=== PATIENT | male | born 1985 | race Caucasian/White ===

== ENCOUNTER 2025-04-18 22:58 | Emergency (ER) | payer OTHER ==
[~2025-04-18] VITALS: Ht 182.9 cm; Wt 102.0 kg
[2025-04-18 22:59] VITALS: TEMP 36.6; O2SAT 97
[2025-04-18 23:48] LABS: BASOPHILS % 0.4 % (0.0-2.0); EOSINOPHILS % 0.8 % (0.0-5.0); HEMATOCRIT. 40.3 % (42.0-52.0); HEMOGLOBIN. 13.6 g/dL (14.0-18.0); LYMPHOCYTES % 14.1 % (20.0-50.0); MEAN PLATELET VOLUME 8.9 fl (7.4-10.4); MONOCYTES % 6.7 % (2.0-8.0); NEUTROPHILS % 78.0 % (40.0-76.0); PLATELET 328 x1000/uL (130-400); RED BLOOD CELL COUNT 4.67 mill/uL (4.7-6.1); RED CELL DISTRIBUTION WIDTH 12.6 % (11.6-14.6)
[2025-04-19 00:02] LABS: INR 1.0
[2025-04-19 00:16] LABS: CREATININE 1.3 mg/dL (0.6-1.3); TROPONIN I HIGH SENSITIVITY < 4 ng/L (3.0-53); UREA NITROGEN BLOOD 12 mg/dL (9-23)
[2025-04-19 00:17] LABS: ETHANOL BLOOD < 10 mg/dL (<10)
[2025-04-19 00:18] LABS: ASPARTATE AMINOTRANSFERASE 27 IU/L (<34); BILIRUBIN DIRECT < 0.1 mg/dL (<=3.0); BILIRUBIN TOTAL 0.3 mg/dL (0.1-1.0); PROTEIN TOTAL 6.8 g/dL (6.0-8.3)
[2025-04-19] MEDS: ACETAMINOPHEN 325MG TABLET PO ONE (00:39)
[2025-04-19] MEDS: TETANUS, DIPHTHERIA, PERTUSSIS VAC/PF 0.5ML (>10YR OLD) IM ONE (00:40)
[2025-04-19] MEDS: POTASSIUM CHLORIDE 20MEQ TABLET SR PO SCH (01:08)
[2025-04-19] MEDS: MORPHINE SULFATE 4 MG/ML INJ (FOR IV/IM USE) IV ONE (01:12)
[2025-04-19 02:10] LABS: TROPONIN I HIGH SENSITIVITY 4 ng/L (3.0-53)
[2025-04-19] MEDS: LIDOCAINE HCL/PF 1% 10 MG/ML 5ML VIAL INFIL ONE (02:43)
[2025-04-19] MEDS: BACITRACIN ZINC OINT UDPKT TOP ONE (02:43)
[2025-04-19] MEDS ORDERED: IBUP-2029 MT (03:21)
[2025-04-19] MEDS ORDERED: METH-653 MT (03:21)
[2025-04-19 03:27] LABS: CLARITY URINE CLEAR (CLEAR); COLOR URINE YELLOW (YELLOW); GLUCOSE URINE TRACE (NEGATIVE); KETONES URINE NEGATIVE (NEGATIVE); LEUKOCYTE ESTERASE URINE NEGATIVE (NEGATIVE); NITRITE URINE NEGATIVE (NEGATIVE); OCCULT BLOOD URINE NEGATIVE (NEGATIVE); PH URINE 5.5 (4.5-8.0); PROTEIN URINE TRACE (NEGATIVE); SPECIFIC GRAVITY URINE 1.036 (1.005-1.030); UROBILINOGEN URINE 0.2 E.U./dL (0.2-1.0)
[2025-04-19] MEDS ORDERED: [UNRECOGNIZED DRUG - CODE] TOP (03:27)
[2025-04-19] MEDS ORDERED: [UNRECOGNIZED DRUG - CODE] TOP (03:27)
[2025-04-19 03:38] LABS: *AMPHETAMINES SCREEN URINE NEGATIVE (NEGATIVE); *BARBITURATES SCREEN URINE NEGATIVE (NEGATIVE); *BENZODIAZEPINES SCREEN URINE NEGATIVE (NEGATIVE); *COCAINE SCREEN URINE NEGATIVE (NEGATIVE); CANNABINOID URINE SCREEN NEGATIVE (NEGATIVE); ECSTASY MDMA SCREEN URINE NEGATIVE (NEGATIVE); METHADONE URINE SCREEN NEGATIVE (NEGATIVE); OPIATES URINE SCREEN PRESUMPTIVE POSITIVE (NEGATIVE); PHENCYCLIDINE URINE SCREEN NEGATIVE (NEGATIVE)
[2025-04-19 03:40] LABS: BACTERIA URINE TRACE; FINE GRANULAR CASTS URINE 0-5 /lpf; RBC URINE NONE SEEN /hpf (0-2); SQUAMOUS EPITHELIAL CELL URINE RARE /lpf (RARE/1+); WBC URINE NONE SEEN /hpf (0-2)
[2025-04-19] MEDS: DEXTROSE 50% WATER 50ML SYRINGE IV ONE (03:51)
[2025-04-19 05:10] VITALS: BP 109/62; PULSE 88; RESP 20; O2SAT 95
[2025-04-19] MEDS ORDERED: BLOO-1812 MC (05:11)
[2025-04-19] MEDS ORDERED: LANC1KIT39 MC (05:11)
[2025-04-19] MEDS ORDERED: BLOO-1733 MC (05:11)
[2025-04-19] MEDS ORDERED: IOHEXOL-350 100 ML BOTTLE ONE (06:25)
== END 2025-04-19 05:30 | disposition home or self-care (01) ==
LOC: ER 22:58
DX: E10.649 Type 1 diabetes mellitus with hypoglycemia without coma (principal); R56.9 Unspecified convulsions; Z79.899 Other long term (current) drug therapy
CPT/HCPCS: 80076; 80048; 80320; 82962 ×2; 83880; 85025; 85379; 85610; 84484 ×2; 36415 ×2; 71045; 90715; 93005; 99285; 80305; 81003; 73030; 71275; 70450; 90471; 96374; 96375; Q9967; J2270; 96372; J2003; G0480